=== PATIENT | male | born 1970 | race Caucasian/White ===

== ENCOUNTER 2021-09-06 13:00 | Emergency (ER) | payer BC ==
[~2021-09-06] VITALS: Ht 182.9 cm; Wt 99.8 kg
[2021-09-06] MEDS ORDERED: KETO10TA2 PO (17:00)
== END 2021-09-06 17:51 | disposition home or self-care (01) ==
LOC: ER 13:00
DX: S43.014A Anterior dislocation of right humerus, initial encounter (principal); W18.09XA Striking against other object with subsequent fall, initial encounter; Y93.89 Activity, other specified; Y92.832 Beach as the place of occurrence of the external cause; Y99.8 Other external cause status